=== PATIENT | male | born 1985 | race Two or more races ===

== ENCOUNTER 2018-07-17 22:53 | Emergency (ER) | payer OTHER ==
[2018-07-17 22:56] VITALS: BP 133/86; PULSE 65; TEMP 97.4; BMI 24.7
[2018-07-17] MEDS ORDERED: SODIUM CHLORIDE 1,000 ML IV STA (23:00)
--- NOTE | 2018-07-17 23:00 | PDOC ---
History of Present Illness <Leslie Garcia - Last Filed: 07/18/18 01:33> - General History Source: Patient Exam Limitations: No Limitations - History of Present Illness Travel History: No Initial Comments: 07/17/18 23:59 Best Contact: PCP:Dr. Lopez/Dan[facility], Last physical exam 04/2018 Pmhx:0 Pshx:0 Allergies:NKDA FH:0 Social Hx: Cigarettes/0 Alcohol/ 0 Drugs/0 33-year-old male presents to the emergency department complaining of lumbar right sided back pain/posterior headache after he slipped and fell down a flight off 10 steps causing a daze. Patient states he did not lose consciousness and denies nausea/vomiting, dizziness, lightheadedness, neck pain/ stiffness, facial pains, back pains, chest pain, shortness of breath, abdominal pains, flank pains, bladder or bowel dysfunction, extremity numbness or tingling sensation. Patient states he's able to walk around without any difficulties. <West Pritchett - Last Filed: 07/18/18 01:55> - General Chief Complaint: Pain, Acute Stated Complaint: FALL Time Seen by Provider: 07/17/18 22:59 Past History <Leslie Garcia - Last Filed: 07/18/18 01:33> - Past Medical History COPD: No - Suicide/Smoking/Psychosocial Hx Smoking History: Never smoked Have you smoked in the past 12 months: No Information on smoking cessation initiated: No Hx Alcohol Use: No Drug/Substance Use Hx: No <West Pritchett - Last Filed: 07/18/18 01:55> - Past Medical History Allergies/Adverse Reactions: Allergies Allergy/AdvReac Type Severity Reaction Status Date / Time No Known Allergies Allergy Verified 07/17/18 22:56 Home Medications: Ambulatory Orders NK [No Known Home Medication] 07/17/18 Review of Systems - Review of Systems Able to Perform ROS?: Yes Comments:: 07/18/18 00:00 CONSTITUTIONAL: Absent: fever, chills, diaphoresis, generalized weakness, malaise, loss of appetite HEENT: Absent: rhinorrhea, nasal congestion, throat pain, throat swelling, difficulty swallowing, mouth swelling, ear pain, eye pain, visual Changes CARDIOVASCULAR: Absent: chest pain, loss of consciousness, palpitations, irregular heart rate, peripheral edema RESPIRATORY: Absent: cough, shortness of breath, dyspnea with exertion, orthopnea, wheezing, stridor, hemoptysis GASTROINTESTINAL: Absent: abdominal pain, abdominal distension, nausea, vomiting, diarrhea, constipation, melena, hematochezia GENITOURINARY: Absent: dysuria, frequency, urgency, hesitancy, hematuria, flank pain, genital pain MUSCULOSKELETAL: left forearm pain/ left lat lower leg pain Left lumbar paraspinal pain Absent: myalgia, arthralgia, joint swelling SKIN: Absent: rash, itching, pallor HEMATOLOGIC/IMMUNOLOGIC: Absent: easy bleeding, easy bruising, lymphadenopathy, frequent infections ENDOCRINE: Absent: unexplained weight gain, unexplained weight loss, heat intolerance, cold intolerance NEUROLOGIC: +posterior headache +LOC " for a few seconds" Absent: focal weakness or paresthesias, dizziness, unsteady gait, seizure, mental status changes, bladder or bowel incontinence PSYCHIATRIC: Absent: anxiety, depression, suicidal or homicidal ideation, hallucinations. Is the patient limited Irish proficient: No <West Pritchett - Last Filed: 07/18/18 01:55> *Physical Exam - Vital Signs Last Vital Signs Temp Pulse Resp BP Pulse Ox 97.4 F L 65 16 133/86 100 07/17/18 22:54 07/17/18 22:54 07/17/18 22:54 07/17/18 22:54 07/17/18 22:54 <Leslie Garcia - Last Filed: 07/18/18 01:33> - Vital Signs Last Vital Signs Temp Pulse Resp BP Pulse Ox 97.4 F L 65 16 133/86 100 07/17/18 22:54 07/17/18 22:54 07/17/18 22:54 07/17/18 22:54 07/17/18 22:54 - Physical Exam Comments: 07/18/18 00:02 GENERAL: Well developed, well nourished. Awake and alert. No acute distress. HEENT: Normocephalic, atraumatic. PERRLA, EOMI. No conjunctival pallor. Sclera are non- icteric. Moist mucous membranes. Oropharynx is clear. NECK: Supple. Full ROM. No JVD. Carotid pulses 2+ and symmetric, without bruits. No thyromegaly. No lymphadenopathy. CARDIOVASCULAR: Regular rate and rhythm. No murmurs, rubs, or gallops. Distal pulses are 2+ and symmetric. PULMONARY: No evidence of respiratory distress. Lungs clear to auscultation bilaterally. No wheezing, rales or rhonchi. ABDOMINAL: Soft. Non-tender. Non-distended. No rebound or guarding. No organomegaly. Normoactive bowel sounds. MUSCULOSKELETAL NEG SLR Normal range of motion at all joints. No bony deformities or tenderness. No CVA tenderness. EXTREMITIES: No cyanosis. No clubbing. No edema. No calf tenderness. SKIN: Warm and dry. Normal capillary refill. No rashes. No jaundice. NEUROLOGICAL: Alert, awake, appropriate. Cranial nerves 2-12 intact. No deficits to light touch and temperature in face, upper extremities and lower extremities. No motor deficits in the in face, upper extremities and lower extremities. Normoreflexic in the upper and lower extremities. Normal speech. Toes are down- going bilaterally. Gait is normal without ataxia. <West Pritchett - Last Filed: 07/18/18 01:55> Moderate Sedation - Procedure Monitoring Vital Signs: Procedure Monitoring Vital Signs Temperature 97.4 F L 07/17/18 22:54 Pulse Rate 65 07/17/18 22:54 Respiratory Rate 16 07/17/18 22:54 Blood Pressure 133/86 07/17/18 22:54 O2 Sat by Pulse Oximetry (%) 100 07/17/18 22:54 <Leslie Garcia - Last Filed: 07/18/18 01:33> - Procedure Monitoring Vital Signs: Procedure Monitoring Vital Signs Temperature 97.4 F L 07/17/18 22:54 Pulse Rate 65 07/17/18 22:54 Respiratory Rate 16 07/17/18 22:54 Blood Pressure 133/86 07/17/18 22:54 O2 Sat by Pulse Oximetry (%) 100 07/17/18 22:54 <West Pritchett - Last Filed: 07/18/18 01:55> ED Treatment Course - LABORATORY CBC & Chemistry Diagram: 07/17/18 23:13 07/17/18 23:13 - ADDITIONAL ORDERS Additional order review: Laboratory Results 07/17/18 07/17/18 23:53 23:13 Sodium 139 Potassium 3.7 Chloride 104 Carbon Dioxide 27 Anion Gap 8 BUN 9 Creatinine 0.9 Creat Clearance w eGFR > 60 Random Glucose 103 Calcium 9.3 Total Bilirubin 0.4 AST 26 ALT 60 Alkaline Phosphatase 116 Total Protein 7.5 Albumin 4.4 Urine Color Yellow Urine Appearance Clear Urine pH 5.0 Ur Specific [place] 1.020 Urine Protein Negative Urine Glucose (UA) Negative Urine Ketones Negative Urine Blood 1+ H Urine Nitrite Negative Urine Bilirubin Negative Urine Urobilinogen Negative Ur Leukocyte Esterase Negative Urine WBC (Auto) 2 Urine RBC (Auto) 11 Ur Epithelial Cells Rare Urine Bacteria Rare Urine Mucus Rare 07/17/18 23:13 RBC 4.75 MCV 87.6 MCHC 35.0 RDW 13.5 MPV 8.1 Neutrophils % 52.8 Lymphocytes % 36.7 Monocytes % 6.7 Eosinophils % 3.2 Basophils % 0.6 - Medications Given in the ED: ED Medications Discontinued Medications Generic Name Dose Route Start Last Admin Trade Name Figueroaq PRN Reason Stop Dose Admin Acetaminophen 1,000 mg 07/17/18 23:12 07/17/18 23:20 Ofirmev Injection - IVPB 07/17/18 23:13 1,000 mg ONCE ONE Administration Sodium Chloride 1,000 mls @ 1,000 mls/hr 07/17/18 23:00 07/17/18 23:20 Normal Saline - IV 07/17/18 23:59 1,000 mls/hr ASDIR STA Administration Ketorolac Tromethamine 30 mg 07/18/18 00:43 07/18/18 00:48 Toradol Injection - IVPUSH 07/18/18 00:44 30 mg ONCE ONE Administration <Leslie Garcia - Last Filed: 07/18/18 01:33> - LABORATORY CBC & Chemistry Diagram: 07/17/18 23:13 07/17/18 23:13 - RADIOLOGY Radiograph Interpretation: 07/18/18 00:02 CT head w/o contrast: WNL CT c spine w/o contrast: neg 07/18/18 01:[address]: neg Non obstructing small renal stone <West Pritchett - Last Filed: 07/18/18 01:55> Medical Decision Making - Medical Decision Making 07/18/18 01:33 Patient Name: JANIE JIANG THIS IS A PRELIMINARY REPORT FROM [facility] DATE OF SERVICE: 2018-07-18 00:05:31 IMAGES: [id number] EXAM: HEAD CT WITHOUT CONTRAST HISTORY: Status post fall COMPARISON: None. FINDINGS: The ventricular system is midline and nondilated. The sulcal pattern is normal for the patient's age. There is no bleed, mass, extra-axial fluid collection or mass effect. No skull fracture or skull lesion is identified. The visualized paranasal sinuses and mastoid air cells are clear other than mild left maxillary sinus mucosal thickening. IMPRESSION: No acute pathology Patient Name: JANIE JIANG THIS IS A PRELIMINARY REPORT FROM [facility] DATE OF SERVICE: 2018-07-18 00:03:09 IMAGES: [id number] EXAM: CERVICAL SPINE CT W/O CONTR HISTORY: Status post fall COMPARISON: None. FINDINGS: There is no fracture, subluxation, prevertebral soft tissue swelling or significant degenerative changes. The lung apices are clear. IMPRESSION: No fracture. Patient Name: JANIE JIANG THIS IS A PRELIMINARY REPORT FROM [facility] DATE OF SERVICE: 2018-07-18 00:49:19 IMAGES: [id number] EXAM: CT abdomen and pelvis without contrast HISTORY: Status post fall COMPARISON: None. FINDINGS: Lung bases are clear. The visualized cardiac chambers are normal size and configuration. Small nonobstructing left renal stone is noted. Normal unenhanced liver, gallbladder, pancreas, spleen, adrenal glands and right kidney. The stomach and abdominal small and large bowel are normal. There is no aortic aneurysm. There is no significant retroperitoneal lymphadenopathy. No mesenteric edema retroperitoneal hematoma. The pelvic small and large bowel are normal. The appendix is normal. The urinary bladder and prostate gland are normal. No pelvic free fluid is identified. There is no significant pelvic lymphadenopathy. There are no fractures. IMPRESSION: No acute traumatic pathology. Small nonobstructing left renal stone. <Leslie Garcia - Last Filed: 07/18/18 01:33> *DC/Admit/Observation/Transfer <Leslie Garcia - Last Filed: 07/18/18 01:33> - Discharge Dispostion Decision to Admit order: No <West Pritchett - Last Filed: 07/18/18 01:55> Diagnosis at time of Disposition: Renal stone Contusion of lower back Qualifiers: Encounter type: initial encounter Qualified Code(s): S30.0XXA - Contusion of lower back and pelvis, initial encounter Closed head injury Qualifiers: Encounter type: initial encounter Qualified Code(s): S09.90XA - Unspecified injury of head, initial encounter - Discharge Dispostion Disposition: HOME Condition at time of disposition: Stable - Referrals Referrals: Aurelio Hooks [Primary Care Provider] - - Patient Instructions Printed Discharge Instructions: Contusion, DI for Kidney Stones, DI for Closed Head Injury Additional Instructions: Tylenol/Motrin as needed for pain. Rest Return to the ER for severe/persistent/worsening symptoms Followup with DR. Hernandez/orthopedics Follow up with Urology/Dr. Pollard/urology - Post Discharge Activity Forms/Work/School Notes: Back to Work
[2018-07-17] MEDS ORDERED: ACETAMINOPHEN 1000 MG/100 ML VIAL (NON FORMULARY) IVPB ONE (23:12)
[2018-07-17] MEDS ORDERED: ACETAMINOPHEN INJECTION 100 ML IVPB ONE (23:14)
[2018-07-17 23:21] LABS: BASO % 0.6 % (0-2.0); EOS % 3.2 % (0-4.5); HEMATOCRIT 41.6 % (35.4-49); HEMOGLOBIN 14.6 GM/dL (11.7-16.9); LYMPH % 36.7 % (8-40); MCH 30.7 pg (25.7-33.7); MEAN CELL VOLUME 87.6 fl (80-96); MEAN PLT VOLUME 8.1 fl (7.5-11.1); MONO % 6.7 % (3.8-10.2); NEUT % 52.8 % (42.8-82.8); PLATELET COUNT 352 K/MM3 (134-434); RBC 4.75 M/mm3 (4.00-5.60); RDW 13.5 % (11.9-15.9); WHITE BLOOD COUNT 10.9 K/mm3 (4.0-10.0)
[2018-07-17 23:47] LABS: ALBUMIN 4.4 g/dl (3.4-5.0); ALK PHOS 116 U/L (45-117); ANION GAP 8 MMOL/L (8-16); BILIRUBIN,TOTAL 0.4 mg/dL (0.2-1); BLOOD UREA NITROGEN 9 mg/dL (7-18); CALCIUM 9.3 mg/dL (8.5-10.1); CHLORIDE 104 mmol/L (98-107); CO2 27 mmol/L (21-32); CREATININE 0.9 mg/dL (0.55-1.3); GLUCOSE,RANDOM 103 mg/dL (74-106); POTASSIUM 3.7 mmol/L (3.5-5.1); SGOT/AST 26 U/L (15-37); SGPT/ALT 60 U/L (13-61); SODIUM 139 mmol/L (136-145); TOT PROT 7.5 g/dl (6.4-8.2)
[2018-07-18] LABS: URINE APPEARANCE CLEAR; URINE BILIRUBIN NEGATIVE (<2.0 mg/dL); URINE COLOR YELLOW; URINE GLUCOSE (UA) NEGATIVE (NEGATIVE); URINE KETONE NEGATIVE (NEGATIVE); URINE LEUK ESTERASE NEGATIVE (NEGATIVE); URINE NITRITE NEGATIVE (NEGATIVE); URINE PROTEIN NEGATIVE (NEGATIVE); URINE UROBILINOGEN NEGATIVE mg/dL (0.2-1.0)
[2018-07-18 00:12] LABS: EPI CELLS RARE /HPF (FEW); URINE BACTERIA RARE /hpf (NONE SEEN); URINE MUCUS RARE
[2018-07-18] MEDS ORDERED: KETOROLAC TROMETHAMINE 30 MG/1 ML VIAL IVPUSH ONE (00:43)
[2018-07-18] MEDS ORDERED: KETOROLAC TROMETHAMINE 30 MG/1 ML VIAL ONE (00:45)
== END 2018-07-18 01:21 | disposition home or self-care (01) ==
LOC: JER 22:53
PROC: 3E0337Z Introduction of Electrolytic and Water Balance Substance into Peripheral Vein, Percutaneous Approach (ICD-10-PCS; principal; 2018-07-17)
PROC: 3E033NZ Introduction of Analgesics, Hypnotics, Sedatives into Peripheral Vein, Percutaneous Approach (ICD-10-PCS; 2018-07-17)
PROC: 3E0333Z Introduction of Anti-inflammatory into Peripheral Vein, Percutaneous Approach (ICD-10-PCS; 2018-07-17)
DX: S30.0XXA Contusion of lower back and pelvis, initial encounter (principal); W10.8XXA Fall (on) (from) other stairs and steps, initial encounter; R51 Headache; Y93.89 Activity, other specified; Y92.038 Other place in apartment as the place of occurrence of the external cause; Y99.8 Other external cause status; N20.0 Calculus of kidney
CPT/HCPCS: 36415; 70450-TC; 72125-TC; 74176; 80053; 81003; 81015; 85025; 99284-25; J0131; J7030

== ENCOUNTER 2020-02-16 10:15 | Emergency (ER) | payer OTHER ==
[2020-02-16 10:29] VITALS: BP 123/75; PULSE 81; TEMP 98.2; BMI 26.4
[2020-02-16] MEDS ORDERED: CYCLOBENZAPRINE HCL 10 MG TABLET (FP) PO ONE (11:45)
[2020-02-16] MEDS ORDERED: KETOROLAC TROMETHAMINE 60 MG/2 ML VIAL IM ONE (11:45)
[2020-02-16] MEDS ORDERED: CYCLOBENZAPRINE HCL 10 MG TABLET (FP) ONE (11:50)
[2020-02-16] MEDS ORDERED: KETOROLAC TROMETHAMINE 60 MG/2 ML VIAL ONE (11:50)
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
== END 2020-02-16 12:04 | disposition home or self-care (01) ==
LOC: JERFT 10:15
PROC: 3E0233Z Introduction of Anti-inflammatory into Muscle, Percutaneous Approach (ICD-10-PCS; principal; 2020-02-16)
DX: S09.90XA Unspecified injury of head, initial encounter (principal)
CPT/HCPCS: 70450-TC; 72125-TC; 99284-25

== ENCOUNTER 2020-02-22 19:35 | Emergency (ER) | payer OTHER ==
[2020-02-22 20:14] VITALS: BP 129/75; PULSE 76; TEMP 97.8; BMI 25.9
--- NOTE | 2020-02-22 20:38 | PDOC ---
*Physical Exam - Vital Signs Last Vital Signs Temp Pulse Resp BP Pulse Ox 97.8 F 76 19 129/75 97 02/22/20 20:04 02/22/20 20:04 02/22/20 20:04 02/22/20 20:04 02/22/20 20:04 Medical Decision Making - Medical Decision Making 02/22/20 20:37 Patient seen by the advanced practice provider under my supervision. Ancillary testing reviewed as necessary. I agree with plan as outlined by the advanced practice provider. Discharge - Discharge Information Problems reviewed: Yes Clinical Impression/Diagnosis: Concussion Condition: Stable Disposition: HOME - Follow up/Referral - Patient Discharge Instructions Patient Printed Discharge Instructions: DI for Concussion - Post Discharge Activity Work/Back to School Note: Back to Work
[2020-02-22] MEDS ORDERED: KETOROLAC TROMETHAMINE 30 MG/1 ML VIAL IM ONE (20:43)
[2020-02-22] MEDS ORDERED: METOCLOPRAMIDE HCL 10 MG TABLET (FP) PO ONE ×2 (20:44→20:49)
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
[2020-02-22] MEDS ORDERED: KETOROLAC TROMETHAMINE 30 MG/1 ML VIAL ONE (20:49)
== END 2020-02-22 21:34 | disposition home or self-care (01) ==
LOC: JER 19:35
PROC: 3E0233Z Introduction of Anti-inflammatory into Muscle, Percutaneous Approach (ICD-10-PCS; principal; 2020-02-22)
DX: S06.0X0A Concussion without loss of consciousness, initial encounter (principal)
CPT/HCPCS: 73590-TC-LT-FY; 99284-25